=== PATIENT | female | born 1965 | race Hispanic/Latino ===

== ENCOUNTER 2018-01-29 23:50 | Emergency (ER) | payer OTHER ==
[~2018-01-29] VITALS: Ht 154.9 cm; Wt 66.0 kg
[2018-01-30 00:28] LABS: HEMATOCRIT 39.5 % (36.0-46.0); HEMOGLOBIN 13.3 G/DL (11.9-15.5); MCH 28.3 PG (29.0-34.0); MCHC 33.7 G/DL (30.0-36.0); PLATELET COUNT 346 K/uL (156-360); RBC DIS.WIDTH-CV 14.4 % (11.8-14.6); RBC DIS.WIDTH-SD 44.2 % (39-53); WHITE BLOOD COUNT 8.1 K/uL (4.1-10.2)
[2018-01-30 00:37] LABS: CHLORIDE 104 mEq/L (99-109); POTASSIUM 3.9 mEq/L (3.7-5.4); SODIUM 138 mEq/L (136-147)
[2018-01-30 00:39] LABS: GLUCOSE 95 mg/dL (70-99)
[2018-01-30 00:43] LABS: CREATININE 0.7 mg/dL (0.6-1.3); GFR ESTIMATE (CALCULATED) > 59 mL/min/
[2018-01-30 00:44] LABS: UREA NITROGEN (BUN) 13 mg/dL (9-23)
[2018-01-30 00:50] LABS: TROP-I INTERPRETATION NEGATIVE; TROPONIN-I < 0.01 ng/mL (0.0-0.30)
[2018-01-30] MEDS ORDERED: FLEXERIL10 MG PO (04:30)
[2018-01-30] MEDS ORDERED: MOTRIN600 MG PO (04:31)
[2018-01-30 04:52] VITALS: BP 102/67
== END 2018-01-30 04:53 | disposition home or self-care (01) ==
LOC: EME 23:50
DX: R51 Headache (principal); M54.2 Cervicalgia; R11.0 Nausea; R07.89 Other chest pain; M25.511 Pain in right shoulder; R42 Dizziness and giddiness
CPT/HCPCS: 70496; 71046; 80048; 84484; 85027; 93005; 99281; 99285